=== PATIENT | male | born 1990 | race Caucasian/White ===

== ENCOUNTER 2024-01-20 17:44 | Emergency (ER) | payer SELFPAY ==
--- NOTE | 2024-01-20 17:48 | ERPHSYRPT ---
- History of Present Illness Time Seen by Provider: 01/20/24 17:48 Source: patient, EMS Exam Limitations: no limitations Physician History: This is a 33-year-old white male patient who is homeless and has no primary care provider who presents to the emergency department by the ambulance service secondary to complaints of low to mid back pain. There were no fall and no injuries. He has been walking a lot in the last 2 days. Patient states he also has not eaten in 2 days. Blood sugar was checked by EMS which was 69 and patient was given glucagon. Patient admits to methamphetamine use recently. Patient denies chest pain and he denies shortness of breath. Patient has no known drug allergies and he takes no medications chronically. Timing/Duration: today Quality: dull Back Pain Location: T-spine, lumbar spine Severity of Pain-Max: mild (Moderate) Severity of Pain-Current: mild (To moderate) Modifying Factors: Improves With: movement Associated Symptoms: denies symptoms Previous symptoms: no prior history, no recent treatment Allergies/Adverse Reactions: cefaclor Allergy (Verified 01/20/24 17:46) Home Medications: No Reportable Medications [No Reported Medications] 01/20/24 [History] Travel Risk - International Travel Have you traveled outside of the country in past 3 weeks: No - Emerging Infectious Disease Are you exhibiting symptoms associated with any current EIDs: No - Review of Systems Constitutional: No Symptoms Eyes: No Symptoms Ears, Nose, & Throat: No Symptoms Respiratory: No Symptoms Cardiac: No Symptoms Abdominal/Gastrointestinal: No Symptoms Genitourinary Symptoms: No Symptoms Musculoskeletal: Back Pain Skin: No Symptoms Neurological: No Symptoms Psychological: No Symptoms Endocrine: No Symptoms Hematologic/Lymphatic: No Symptoms Immunological/Allergic: No Symptoms All Other Systems: Reviewed and Negative - Past Medical History Pertinent Past Medical History: No - Past Surgical History Past Surgical History: No - Nursing Vital Signs Nursing Vital Signs: Initial Vital Signs Temperature 97.0 F 01/20/24 17:59 Pulse Rate 102 H 01/20/24 17:59 Respiratory Rate 18 01/20/24 17:59 Blood Pressure 128/80 01/20/24 17:59 O2 Sat by Pulse Oximetry 98 01/20/24 17:59 Pain Scale Pain Intensity [Back] 8 Pain Intensity 9 - Physical Exam General Appearance: no apparent distress, alert, anxiety, thin Eye Exam: PERRL/EOMI, eyes nml inspection Ears, Nose, Throat Exam: normal ENT inspection, moist mucous membranes Neck Exam: normal inspection, non-tender, supple, full range of motion Respiratory Exam: normal breath sounds, lungs clear, airway intact, No chest tenderness, No respiratory distress Cardiovascular Exam: regular rate/rhythm, normal heart sounds, normal peripheral pulses Gastrointestinal Exam: soft, normal bowel sounds, No tenderness Rectal Exam: not done Back Exam: normal inspection, normal range of motion, vertebral tenderness (Mild tenderness to palpation at the junction between the distal thoracic spine and the lumbar spine), No CVA tenderness Extremity Exam: normal inspection, normal range of motion, pelvis stable Neurologic Exam: alert, oriented x 3, cooperative, aviation manager II-XII nml as tested, normal mood/affect, nml cerebellar function, nml station & gait, sensation nml Skin Exam: normal color, warm, dry Lymphatic Exam: No adenopathy SpO2 Interpretation: normal O2 Delivery: Room Air - Course Nursing assessment & vital signs reviewed: Yes Ordered Tests: Active Orders 24 hr Category Date Time Status IV Insertion STAT Care 01/20/24 19:13 Active THORACOLUMBAR SPINE Stat Exams 01/20/24 19:15 Taken BMP Stat Lab 01/20/24 19:30 Completed CBC W DIFF Stat Lab 01/20/24 19:30 Completed Medication Summary Discontinued Medications Generic Name Dose Route Start Last Admin Trade Name Michelle PRN Reason Stop Dose Admin Sodium Chloride 1,000 mls @ 999 mls/hr 01/20/24 19:13 01/20/24 19:21 Sodium Chloride 0.9% 1000 Ml IV 01/20/24 20:13 999 mls/hr .Q1H1M STA Administration Sodium Chloride Confirm 01/20/24 19:20 Sodium Chloride 0.9% 1000 Ml Administered 01/20/24 19:21 Dose 1,000 mls @ ud .ROUTE .STK-MED ONE Potassium Chloride 10 meq 01/20/24 20:20 Potassium Chloride Tab 10 Meq Tab PO 01/20/24 20:21 STAT ONE Lab/Rad Data: Laboratory Result Diagrams 01/20/24 19:30 01/20/24 19:30 Laboratory Results 01/20/24 01/20/24 Range/Units 19:30 19:30 WBC 12.2 H (4.23-9.07) x10^3/uL RBC 4.71 (4.63-6.08) x10^6/uL Hgb 14.2 (13.7-17.5) g/dL Hct 41.8 (40.1-51.0) % MCV 88.7 (79.0-92.2) fL MCH 30.1 (25.7-32.2) pg MCHC 34.0 (32.3-36.5) g/dL RDW 12.2 (11.6-14.4) % Plt Count 247 (163-337) x10^3/uL MPV 9.3 L (9.4-12.4) fL Gran % 69.2 H (34.0-67.9) % Immature Gran % (Auto) 0.2 (0.001-0.429) % Nucleat RBC Rel Count 0.0 (0.00-0.2) % Eos # (Auto) 0.04 (0.04-0.54) x10^3/uL Immature Gran # (Auto) 0.02 (0.001-0.031) x10^3u/L Absolute Lymphs (auto) 2.54 (1.32-3.57) x10^3/uL Absolute Monos (auto) 1.09 H (0.30-0.82) x10^3/uL Absolute Nucleated RBC 0.00 (0.00-0.012) x10^3u/L Lymphocytes % 20.9 L (21.8-53.1) % Monocytes % 9.0 (5.3-12.2) % Eosinophils % 0.3 L (0.8-7.0) % Basophils % 0.4 (0.2-1.2) % Absolute Granulocytes 8.42 H (1.78-5.38) x10^3/uL Basophils # 0.05 (0.01-0.08) x10^3/uL Sodium 137 (135-145) mmol/L Potassium 3.3 L (3.5-5.1) mmol/L Chloride 101 (98-107) mmol/L Carbon Dioxide 21 L (22-30) mmol/L Anion Gap 18.3 H (5-15) MEQ/L BUN 26 H (9-20) mg/dL Creatinine 0.97 (0.66-1.25) mg/dL Estimated GFR 106.4 ML/MIN Glucose 84 (74-106) mg/dL Calcium 9.6 (8.4-10.2) mg/dL - Progress Progress: improved, re-examined Progress Note: 01/20/24 20:26 My medical decision making and the assignment of moderate complexity of this patient's medical issue today is based on review of the patient's past medical history, review of the patient's medication list, review of patient drug allergy list, history present illness and physical findings on examination. The workup in this patient is to place an intravenous line, infusion normal saline solution, order a CBC, BMP and order an x-ray of the thoracolumbar spine. 01/20/24 20:29 Interpreted the patient's laboratory data results. Based on the patient's laboratory results, the patient does not have an acute, emergent medical issue. I interpreted the preliminary report on the patient's thoracolumbar spine x-ray. I do not appreciate an acute fracture or subluxation. Counseled pt/family regarding: lab results, diagnosis, need for follow-up, rad results Medical Desision Making - Independent Historian Additional History obtained from: [employer] Former/EMT - Social Determinants of Health Pt's dx & treatment plan are significantly limited by SDOH: Unemployed, financial hardships, housing insecurity, homelessness Limited access to: transportation, medical care - Diagnostic Testing Diagnostic test were ordered, analyzed, and reviewed by me: Yes - Risk of complications Low Risk: Low risk of morbidity from additional dx testing or treatment - Departure Departure Disposition: Home Clinical Impression: Back pain Condition: Stable Critical Care Time: No Additional Instructions: Plenty of fluids. Use Tylenol and ibuprofen for pain control. Follow-up with your primary care provider tomorrow, 01/21/2024 to make arrangements for further evaluation management and to be seen in the next 3 to 5 days.
[2024-01-20 18:00] VITALS: BP 128/80; TEMP 97
[2024-01-20] MEDS ORDERED: Sodium Chloride 0.9% 1000 ML 1,000 ML ONE (19:20)
[2024-01-20] MEDS: Sodium Chloride 0.9% 1000 ML 1,000 ML IV STA (19:21)
[2024-01-20 19:32] LABS: Absolute Neutrophil Ct (ANC) 8.42 x10^3/uL (1.78-5.38); BASOPHIL % 0.4 % (0.2-1.2); Basophil (Absolute #) 0.05 x10^3/uL (0.01-0.08); Eosinophil % 0.3 % (0.8-7.0); Eosinophil (Absolute #) 0.04 x10^3/uL (0.04-0.54); Hematocrit 41.8 % (40.1-51.0); Hemoglobin 14.2 g/dL (13.7-17.5); IMMATURE GRAN # 0.02 x10^3u/L (0.001-0.031); IMMATURE GRAN % 0.2 % (0.001-0.429); Lymphocyte (Absolute #) 2.54 x10^3/uL (1.32-3.57); Lymphocytes % 20.9 % (21.8-53.1); Mean Cell Volume 88.7 fL (79.0-92.2); Mean Corpuscular Hemoglobin 30.1 pg (25.7-32.2); Mean Platelet Volume 9.3 fL (9.4-12.4); Monocyte (Absolute #) 1.09 x10^3/uL (0.30-0.82); Neutrophil % 69.2 % (34.0-67.9); Platelet Count 247 x10^3/uL (163-337); Red Blood Count 4.71 x10^6/uL (4.63-6.08); Red Cell Distribution Width 12.2 % (11.6-14.4); White Blood Count 12.2 x10^3/uL (4.23-9.07)
[2024-01-20 19:41] LABS: Calcium 9.6 mg/dL (8.4-10.2); Creatinine 1 0.97 mg/dL (0.66-1.25); EST GLOMERULAR FILTRATION RATE 106.4 ML/MIN; Potassium 3.3 mmol/L (3.5-5.1)
[2024-01-20 19:59] LABS: ANION GAP 18.3 MEQ/L (5-15)
[2024-01-20] MEDS ORDERED: Klor Con ONE (20:24)
[2024-01-20] MEDS: Klor Con PO ONE (20:25)
[2024-01-20 20:28] VITALS: PULSE 100; RESP 16; O2SAT 99
--- NOTE | 2024-01-21 09:05 | XRAY ---
Indication: Low back pain. No known injury. Comparison: None AP/lateral spine centered at thoracolumbar junction obtained. No bony, articular, or soft tissue abnormalities.
== END 2024-01-20 20:41 | disposition home or self-care (01) ==
LOC: ED 17:44
DX: M54.50 Low back pain, unspecified (principal); M54.6 Pain in thoracic spine; Z56.0 Unemployment, unspecified; Z59.00 Homelessness unspecified; Z59.9 Problem related to housing and economic circumstances, unspecified; Z59.82 Transportation insecurity; Z75.3 Unavailability and inaccessibility of health-care facilities
CPT/HCPCS: 36000; 36415; 72080; 80048; 82947; 85025; 99284; A9270-GY